=== PATIENT | female | born 1945 | race African-American/Black ===

== ENCOUNTER 2023-06-08 04:34 | Emergency (ER) | payer MEDICARE ==
[2023-06-08] MEDS ORDERED: Acetaminophen 500 MG TAB ONE (04:51)
== END 2023-06-08 05:30 | disposition home or self-care (01) ==
LOC: NAV ERS 04:34
DX: J06.9 Acute upper respiratory infection, unspecified (principal); Z95.1 Presence of aortocoronary bypass graft
CPT/HCPCS: 87804; 99283